=== PATIENT | male | born 1995 | race Caucasian/White ===

== ENCOUNTER 2016-10-28 04:00 | Emergency (ER) | payer BC, OTHER ==
[~2016-10-28] VITALS: Ht 177.8 cm; Wt 68.2 kg
[2016-10-28 04:00] VITALS: TEMP 97
[2016-10-28 10:52] VITALS: BP 129/54; PULSE 118
== END 2016-10-28 10:57 | disposition home or self-care (01) ==
LOC: COL.ER 04:00
DX: F10.120 Alcohol abuse with intoxication, uncomplicated (principal); Y90.9 Presence of alcohol in blood, level not specified; S00.83XA Contusion of other part of head, initial encounter; W01.198A Fall on same level from slipping, tripping and stumbling with subsequent striking against other object, initial encounter; Y92.488 Other paved roadways as the place of occurrence of the external cause